=== PATIENT | female | born 1995 | race Caucasian/White ===

== ENCOUNTER 2019-04-07 13:04 | Emergency (ER) | payer OTHER, SELFPAY ==
[2019-04-07 13:34] VITALS: BP 109/53; PULSE 93; RESP 18; TEMP 36.9; O2SAT 98; BMI 35.5
--- NOTE | 2019-04-07 14:02 | ED.URI ---
HPI - URI/Sore Throat <HORTENSIA Cade - Last Filed: 04/07/19 21:17> General Chief Complaint: Upper Respiratory Symptoms Stated Complaint: Cough,congestion Time Seen by Provider: 04/07/19 13:35 Source: patient Mode of arrival: Family Vehicle Limitations: no limitations History of Present Illness HPI Narrative: 23-year-old female presents to the emergency department today complaining of a productive cough for the past 5 days. She states she also has associated rhinorrhea and sinus congestion. She has been taking [id number] cold medication to help decrease symptoms which she continues to cough and make herself up multiple times at night. Patient denies fevers, chest pain, shortness of breath, nausea, vomiting, diarrhea, or history of respiratory diseases. Related Data Previous Rx's Medication Instructions Recorded prednisone 40 mg PO DAILY 3 Days #6 tab 04/07/19 Review of Systems <HORTENSIA Cade - Last Filed: 04/07/19 21:17> Review of Systems Narrative: REVIEW OF SYSTEMS: GENERAL: Denies fevers. HENT: No head trauma or hearing loss. EYES: No loss of vision, double vision, eye pain, irritation or discharge. CARDIOVASCULAR: No chest pain or syncope. RESPIRATORY: No shortness of breath. Patient reports cough, see HPI. GASTROINTESTINAL: No nausea, vomiting, diarrhea, or constipation. MUSCULOSKELETAL: No weakness or injury. INTEGUMENTARY: No rash, lesions, or pruritus. NEURO: No memory loss, or confusion. Patient History <HORTENSIA Cade - Last Filed: 04/07/19 21:17> Medical History No significant medical problems (Acute) Social History Smoking Status: Never smoker alcohol intake frequency: 0-2 drinks per day Substance Use Type: does not use Exam <HORTENSIA Cade - Last Filed: 04/07/19 21:17> Narrative Exam Narrative: PHYSICAL EXAMINATION: GENERAL: Well groomed, alert, and cooperative. Answers questions promptly and appropriately. Vital signs noted. HENT: Normocephalic, atraumatic. Ear canals patent. TMs intact without mucus or erythema. Oropharynx with slight erythema, no exudate. Tonsils are not present. EYES: Conjunctiva pink, sclera white, no periorbital swelling. No discharge. CHEST: Normal to inspection and without deformities. CARDIOVASCULAR: S1 and S2 sounds normal. Regular rate and rhythm, no murmurs, clicks, or bruits. RESPIRATORY: Normal respiratory rate, trachea midline, airway patent. No stridor, nasal flaring or accessory muscle use. Able to speak in full sentences. Lungs are clear in all taylor without wheeze, rhonchi, or crackles. MUSCULOSKELETAL: Normal gait and coordination. Equal tone and mass bilaterally. EXTREMITIES: Moves all extremities. SKIN: Warm, dry, soft, appropriate color for ethnicity. No lesions, rashes, or wounds. NEURO: Alert and Oriented X 3. Good coordination. No ataxia or cognitive issues. PSYCH: Appropriate affect and mood. Initial Vital Signs Initial Vital Signs: Vital Signs Temperature 98.4 F 04/07/19 13:34 Pulse Rate 93 H 04/07/19 13:34 Respiratory Rate 18 04/07/19 13:34 Blood Pressure 109/53 L 04/07/19 13:34 Pulse Oximetry 98 04/07/19 13:34 <Yara Castorena DO - Last Filed: 04/11/19 18:34> Initial Vital Signs Initial Vital Signs: Vital Signs Temperature 98.4 F 04/07/19 13:34 Pulse Rate 93 H 04/07/19 13:34 Respiratory Rate 18 04/07/19 13:34 Blood Pressure 109/53 L 04/07/19 13:34 Pulse Oximetry 98 04/07/19 13:34 Course <HORTENSIA Cade - Last Filed: 04/07/19 21:17> Consultations Consultation #1: Patient staffed with Dr. Castorena Vital Signs Vital signs: Vital Signs - 8 hr 04/07/19 13:34 04/07/19 15:06 Temperature 98.4 F 98.3 F Pulse Rate 93 H 97 H Respiratory Rate 18 18 Blood Pressure 109/53 L Blood Pressure [Right Arm] 131/60 Pulse Oximetry 98 99 <Yaar Castorena DO - Last Filed: 04/11/19 18:34> Vital Signs Vital signs: Vital Signs - 8 hr 04/07/19 13:34 04/07/19 15:06 Temperature 98.4 F 98.3 F Pulse Rate 93 H 97 H Respiratory Rate 18 18 Blood Pressure 109/53 L Blood Pressure [Right Arm] 131/60 Pulse Oximetry 98 99 [facility] - URI/Sore Throat <KRIS CadeP - Last Filed: 04/07/19 21:17> Medical Records Attestation: I reviewed the patient's medical records. Lab Data Attestation: I reviewed the patient's lab results. [facility] Narrative Medical decision making narrative: This is a 23-year-old female who presents emergency department for prolonged cough after an upper respiratory infection. I suspect her symptoms are most likely caused by post viral inflammation and postnasal drip. She is currently breast-feeding so she was given a short course of prednisone, encouraged to use Flonase, and encouraged to use [id number] cough medication for relief of symptoms. Little suspicion for bacterial etiology due to lack of wheezes or crackles on lung exam, lack of extreme sinus pressure, or lack of other findings such as hypoxia or tachycardia. Patient was encouraged to follow up with her primary care provider for re-evaluation. Return precautions given for new or worsening symptoms Discharge Plan Departure Patient Disposition: Home Clinical Impression: Cough, Viral respiratory illness Discharge Date/Time: 04/07/19 15:23 Instructions: DI for Viral Upper Respiratory Infection -- Adult Activity Restrictions/Additional Instructions: Thank you for entrusting me with your care today. As discussed, your cough is most likely due to a viral illness. You have been prescribed a short course of prednisone to help with coughing, I also recommend using Flonase nasal spray for postnasal drip. Continue to use [id number] medication for cough as this is the safest while . Follow up with your primary care provider in the next week for re-evaluation if her symptoms continue. Return emergency department if you develop chest pain, syncope, worsening shortness of breath, or other new or worsening concerns Prescriptions: New prednisone 20 mg tablet 40 mg PO DAILY 3 Days Qty: 6 RF: 0
[2019-04-07 15:06] VITALS: BP 131/60; PULSE 97; RESP 18; TEMP 36.8; O2SAT 99
== END 2019-04-07 15:23 | disposition home or self-care (01) ==
PROVIDERS: Emergency Provider Nurse Practitioner
DX: R05 Cough (principal); B34.8 Other viral infections of unspecified site
CPT/HCPCS: 99282; 99283